=== PATIENT | female | born 1990 | race American Indian/Alaskan Native ===

== ENCOUNTER 2016-12-20 08:51 | Emergency (ER) | payer OTHER ==
[2016-12-20 09:00] VITALS: BP 113/71
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
[2016-12-20] MEDS ORDERED: FLEXERIL PO ONE (11:17)
[2016-12-20] MEDS ORDERED: NORCO 5/325 PO ONE (11:17)
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
== END 2016-12-20 14:12 | disposition home or self-care (01) ==
LOC: ED 08:51
DX: M54.2 Cervicalgia (principal); M54.5 Low back pain; M79.1 Myalgia; F17.200 Nicotine dependence, unspecified, uncomplicated; F12.10 Cannabis abuse, uncomplicated; V43.52XA Car driver injured in collision with other type car in traffic accident, initial encounter; Y92.488 Other paved roadways as the place of occurrence of the external cause; Y93.89 Activity, other specified; Y99.8 Other external cause status
CPT/HCPCS: 72040; 72072; 72100; 99283